=== PATIENT | female | born 1980 | race African-American/Black ===

== ENCOUNTER 2025-08-09 13:09 | Emergency (ER) | payer BC ==
[~2025-08-09] VITALS: Ht 152.4 cm; Wt 77.1 kg
[2025-08-09 13:17] VITALS: TEMP 98.6
[2025-08-09 14:02] LABS: PLATELET COUNT (AUTO) 355 K/uL (150-450); RED BLOOD CELL COUNT(AUTO) 3.86 MIL/uL (4.0-5.2); RED CELL DISTRIBUTION WIDTH 13.6 % (11.5-15.0); WHITE BLOOD COUNT (AUTO) 8.7 K/uL (4.3-11.0)
[2025-08-09 14:04] LABS: CALCIUM, SERUM 8.7 mg/dL (8.5-10.1); CREATININE 0.9 mg/dL (0.6-1.3); SODIUM SERUM 141 mmol/L (136-145); UREA NITROGEN, BLOOD 12 mg/dL (7-18)
[2025-08-09] MEDS: IV NS 0.9% 1,000 ML BAG IV ONE (14:20)
[2025-08-09] MEDS ORDERED: MECLIZINE HCL 12.5 MG TABLET ONE (14:42)
[2025-08-09] MEDS: MECLIZINE HCL 12.5 MG TABLET PO ONE (14:45)
[2025-08-09] MEDS ORDERED: MECL-182 PO (15:25)
[2025-08-09 15:38] VITALS: BP 121/68; O2SAT 99
== END 2025-08-09 15:38 | disposition home or self-care (01) ==
LOC: ER 13:15
DX: R42 Dizziness and giddiness (principal); I10 Essential (primary) hypertension; F17.200 Nicotine dependence, unspecified, uncomplicated; Z86.19 Personal history of other infectious and parasitic diseases
CPT/HCPCS: 99285; 96360; 70450; 71045; 93005; 85025; 80048; 36415; 84484; J8597; J7030